=== PATIENT | female | born 1985 | race Asian ===

== ENCOUNTER 2019-05-01 20:01 | Day surgery (SDC) | payer OTHER ==
[2019-05-01 20:37] VITALS: TEMP 97.9
[2019-05-01] MEDS ORDERED: hydrALAZINE 20 MG/ML VIAL SLOW IVP PRN (21:12)
--- NOTE | 2019-05-01 21:57 | PRG ---
DATE OF SERVICE: 05/01/2019 PRIMARY OB: Emeterio Novak DO, [place] CHIEF COMPLAINT: Abdominal pain. HISTORY OF PRESENT ILLNESS: The patient is a 34-year-old, G3, P1 female with an intrauterine at 37 weeks and 4 days, presenting to Labor and Delivery with onset of uterine contractions earlier today. The patient reports that initially she was feeling about every hour, but for the last 3 hours or so, she has been feeling a little more frequently up to about every 15 minutes. The patient does admit that she has not had contractions since coming to the hospital. She denies any vaginal bleeding, leakage of fluid. She denies any complications with this thus far. The patient denies any recent illness, fever, fall, headache, chest pain, shortness of breath, nausea, vomiting, diarrhea, constipation, new rashes, hip problems, knee problems, muscle weakness. She denies vaginal bleeding, leakage of fluid, urinary urgency, or frequency. PAST MEDICAL HISTORY: Negative. PAST SURGICAL HISTORY: Negative. ALLERGIES: NO KNOWN DRUG ALLERGIES. MEDICATIONS: vitamins. OB LABS: Blood type is A positive. Antibody screen is negative. GC and chlamydia are both negative. She is rubella immune. Her one-hour Glucola is 85. HIV is negative. VDRL is negative. Her group B strep is unavailable at time of dictation. REVIEW OF SYSTEMS: Per HPI. PHYSICAL EXAMINATION: VITAL SIGNS: Blood pressure is 110/66, heart rate of 90, respiratory rate of 18. GENERAL: She appears to be in no acute distress. She is alert, oriented, cooperative, and pleasant to interact with. HEAD: Normocephalic, atraumatic. LUNGS: Clear to auscultation bilaterally. HEART: Has regular rate and rhythm. ABDOMEN: Soft, gravid, nontender. EXTREMITIES: Nontender, nonedematous. : She is 350 and -2 station, which is essentially what was reported at cervical exam in the clinic yesterday. heart tracing shows baseline in the 130s with moderate long-term variability. Positive accelerations. No decelerations. Tocometer showing some irritability, but no real contraction pattern. ASSESSMENT AND PLAN: The patient is a 34-year-old female with an intrauterine at 37 weeks and 4 days, who was having contractions earlier in the day. This seemed to be irregular, but has since dissipated. The patient will be rechecked in about 30 minutes from now hour after her initial check. If she has made no change, the patient will be discharged home. Fetus has reactive NST and category 1 tracing. She has an appointment in about 1 week to follow up with Dr. Novak. She has been given term labor precautions. Job ID: [id number]
== END 2019-05-01 21:20 | disposition home or self-care (01) ==
LOC: L&D/OP 20:01
PROVIDERS: ATTEND Obstetrics & Gynecology
DX: O47.1 False labor at or after 37 completed weeks of gestation (principal); Z3A.37 37 weeks gestation of pregnancy
CPT/HCPCS: 99282

== ENCOUNTER 2019-05-14 10:07 | Inpatient (IN) | payer OTHER ==
[2019-05-14] MEDS ORDERED: hydrALAZINE 20 MG/ML VIAL SLOW IVP PRN ×2 (10:39→17:23)
[2019-05-14] MEDS ORDERED: Ondansetron PF 4 MG/2 ML Vial IVP PRN ×3 (10:39→17:23)
[2019-05-14] MEDS ORDERED: HYDROcodone/Acetaminophen 5/325 mg Tablet PO PRN ×4 (10:39→17:23)
[2019-05-14] MEDS ORDERED: Lidocaine 1% (PF) 30 ML VIAL SC PRN (10:39)
[2019-05-14] MEDS ORDERED: Butorphanol Tartrate 1 MG/ML VIAL SLOW IVP PRN (10:39)
[2019-05-14] MEDS ORDERED: Promethazine HCl 25 MG/ML VIAL IM PRN ×2 (10:39→14:01)
[2019-05-14] MEDS ORDERED: Ibuprofen 800 MG TAB PO PRN (10:39)
--- NOTE | 2019-05-14 10:43 | PDOC.LDHP ---
Labor and Delivery H&P Chief complaint: loss of fluid HPI: Pt is a 34 yo @ 39 weeks who presents w SROM. Current gestational age (weeks): 39 Due date: 05/18/19 Dating criteria: last menstrual period, first trimester ultrasound Grav: 2 Para: 1 Current complications: none Abnormal US findings: No Current medications: pre- vitamins Previous surgical history: none Allergies/Adverse Reactions: Allergies Allergy/AdvReac Type Severity Reaction Status Date / Time No Known Allergies Allergy Verified 05/01/19 20:34 Social history: none - Physical Exam Vital signs reviewed and normal: yes General: NAD Heart: RRR Lungs: CTAB Abdomen: gravid Extremeties: no edema FHT: category 1 - Vaginal Exam cm dilated: 3 Effacement: 75% (3) Station: -2 - OB Labs Blood type: A RH: positive Antibody Screen: negative HIV: negative RPR: negative HEPSAg: negative 1 hour GCT: negative Rubella: immune - Assessment L&D Assessment: term rupture in membranes - Plan Plan: admit to L&D, labor augmentation if indicated, informed consent obtained, anesthesia consult for pain management
[2019-05-14] MEDS ORDERED: Lactated Ringer's 1,000 ML IV SCH (10:45)
[2019-05-14] MEDS ORDERED: NS w/ Oxytocin 10 units 500 ML IV SCH ×2 (10:45)
[2019-05-14] MEDS ORDERED: Bupivacaine/Epinephrine 0.25% 30 ML VIAL ONE (11:11)
[2019-05-14 11:13] VITALS: BMI 30.2
[2019-05-14 11:20] LABS: Hemoglobin 11.4 g/dL (12.0-16.0); Mean Corpuscular HGB CONC 34.2 g/dL (32.0-36.0); Mean Corpuscular Hemoglobin 30.9 pg (27.0-31.0); Mean Corpuscular Volume 90.3 fL (78.0-98.0); Mean Platelet Volume 7.7 fL (7.4-10.4); Platelet Count 215 thou/uL (130-400); RBC Distribution Width 13.7 % (11.5-14.5); Red Blood Cell (RBC) Count 3.69 mill/uL (4.20-5.40); White Blood Cell (WBC) Count 11.4 thou/uL (4.8-10.8)
[2019-05-14 11:57] LABS: HBSAg Index 0.26 S/CO (0-0.99); Hep B Surf Ag Non-Reactive S/CO (NonReactive)
[2019-05-14 11:59] LABS: Syphilis Antibody Nonreactive (Nonreactive); Syphilis Antibody Index 0.03 S/CO (<1.00 Non-Reactive)
--- NOTE | 2019-05-14 12:17 | PDOC.LDPN ---
Labor & Delivery Progress Note - Subjective Subjective: comfortable - Objective Vital signs reviewed and normal: yes General: resting FHT: category 1 - Assessment (1) 39 weeks gestation of Code(s): Z3A.39 - 39 WEEKS GESTATION OF Current Visit: Yes Status : Acute (2) Ruptured, membranes, premature Code(s): O42.90 - RACHEAL ROM, 7TH0 BETW RUPT & ONST LABR, UNSP WEEKS OF GEST Current Visit: Yes Status: Acute Plan: labor augmentation -: A/P: PROM @ term, pitocin ordered, epidural at pt request.
[2019-05-14] MEDS ORDERED: Fentanyl 4 mcg/Bup 0.1% Cadd 100 ML ONE (13:02)
[2019-05-14] MEDS ORDERED: Fentanyl 100 MCG/2 ML VIAL FS SCH (13:40)
[2019-05-14] MEDS ORDERED: Fentanyl 100 MCG/2 ML VIAL ONE (13:43)
[2019-05-14] MEDS ORDERED: ePHEDrine/0.9% NaCl/PF SYRINGE 50 mg/10 ml SLOW IVP PRN (14:01)
[2019-05-14] MEDS ORDERED: diphenhydrAMINE 50 MG/ML VIAL IVP PRN (14:01)
[2019-05-14] MEDS ORDERED: Naloxone HCl 0.4 mg/ml Vial IVP PRN ×2 (14:01)
[2019-05-14] MEDS ORDERED: Acetaminophen 325 MG TAB PO PRN (14:01)
[2019-05-14] MEDS ORDERED: Lactated Ringer's 500 ML IV PRN (14:01)
[2019-05-14] MEDS ORDERED: Communication Order-Pharmacy FS SCH (14:15)
[2019-05-14] MEDS ORDERED: Fentanyl 4 mcg/Bupivacaine 0.1% Cassette 100 ML EPIDURAL SCH (14:15)
[2019-05-14] MEDS: NS / Oxytocin 40 units/1000ml 1,000 ML IV PRN ×2 (15:10→16:45)
--- NOTE | 2019-05-14 15:15 | PDOC.OPDEL ---
OB Operative/Delivery Note Delivery Dr/Surgeon: Kishore Pre-Delivery Diagnosis: active labor Procedure/Post Delivery Dx: spontaneous vaginal delivery Weeks gestation: 39 Anesthesia: epidural - Findings A Sex: male - 1 min: 8 - 5 min: 9 - Additional Findings/Plan Placenta delivered: spontaneous Repaired Obstetrical Laceration: 1st degree Estimated blood loss: 250ml Post delivery plan: routine recovery
[2019-05-14] MEDS ORDERED: Adacel (T-DAP) 0.5 ML SYRINGE IM ONE (17:23)
[2019-05-14] MEDS ORDERED: diphenhydrAMINE 25 MG CAP PO PRN (17:23)
[2019-05-14] MEDS ORDERED: Benzocaine-Menthol 82.5 ML CAN TOP PRN (17:23)
[2019-05-14] MEDS ORDERED: Bisacodyl 10 MG SUPP PR PRN (17:23)
[2019-05-14] MEDS ORDERED: Lanolin Ointment 7 GM TUBE TOP PRN (17:23)
[2019-05-14] MEDS ORDERED: NS / Oxytocin 40 units/1000ml 1,000 ML IV SCH (17:23)
[2019-05-14] MEDS ORDERED: Milk Of Magnesia 30 ML UDCUP PO PRN (17:23)
[2019-05-14] MEDS: Ferrous Sulfate 325 MG TAB PO SCH (18:31)
[2019-05-14] MEDS: Ibuprofen 800 MG TAB PO SCH (21:11)
[2019-05-14] MEDS: Docusate Calcium (SURFAK) 240 MG CAP PO SCH (21:12)
[2019-05-15] MEDS: Ibuprofen 800 MG TAB PO SCH ×2 (06:18→13:55)
[2019-05-15] MEDS: Docusate Calcium (SURFAK) 240 MG CAP PO SCH (08:34)
[2019-05-15] MEDS ORDERED: Prenatal Vitamin 1 TAB PO SCH (09:00)
[2019-05-15] MEDS: Ferrous Sulfate 325 MG TAB PO SCH (09:10)
[2019-05-15 11:46] VITALS: BP 100/53; TEMP 97.6
--- NOTE | 2019-05-15 12:16 | PDOC.PP ---
Post Progress Note Post Day #: 1 Subjective: doing well, no concerns, latching well, min lochia, no pain PO intake tolerated: yes Flatus: yes Ambulation: yes Vital Signs (12 hours) Temp Pulse Resp BP Pulse Ox 05/15/19 11:45 97.6 F 83 14 100/53 L 05/15/19 08:40 98.0 F 82 20 105/72 97 05/15/19 08:30 98 05/15/19 04:30 97.8 F 79 18 100/56 L 05/15/19 00:50 97.7 F 80 18 112/62 Weight Weight 160 lb - Physical Examination General: NAD Respiratory: non-labored breathing Abdominal: no distention Fundus firm & at: below umb Skin: no rash Neurological: no gross focal deficits Psychiatric: A&Ox3, normal affect Result Diagrams: 05/14/19 11:00 Additional Labs: Post Labs Blood Type A POSITIVE 05/14/19 11:00 Hep Bs Antigen Non-Reactive S/CO (NonReactive) 05/14/19 11:00 (1) 39 weeks gestation of Code(s): Z3A.39 - 39 WEEKS GESTATION OF Status: Acute (2) Ruptured, membranes, premature Code(s): O42.90 - RACHEAL ROM, 7TH0 BETW RUPT & ONST LABR, UNSP WEEKS OF GEST Status: Acute - Assessment/Plan PPD 1 doing well sp . Plan for DC later today if baby DC.
== END 2019-05-15 17:25 | disposition home or self-care (01) | DRG 807 ==
LOC: L&D/OP 10:07 → L&D 11:49 → 3SW 17:41
PROVIDERS: ADMIT Obstetrics & Gynecology; ATTEND Obstetrics & Gynecology
PROC: 10E0XZZ Delivery of Products of Conception, External Approach (ICD-10-PCS; principal; 2019-05-14)
PROC: 0HQ9XZZ Repair Perineum Skin, External Approach (ICD-10-PCS; 2019-05-14)
DX: O42.90 Premature rupture of membranes, unspecified as to length of time between rupture and onset of labor, unspecified weeks of gestation (principal); Z37.0 Single live birth; O70.0 First degree perineal laceration during delivery; Z3A.39 39 weeks gestation of pregnancy
CPT/HCPCS: 36415; 51702; 85027; 86780; 86850; 86900; 86901; 87340; 99285; J2590; J3010